=== PATIENT | female | born 1995 | race Caucasian/White ===

== ENCOUNTER 2021-06-05 17:24 | Emergency (ER) | payer OTHER ==
[~2021-06-05 17:24] MED LIST: CLEOCIN HCL300 MG PO; COLACE 100MG C100 MG PO; IBUPROFEN400 MG PO; NAPROSYN500 MG PO; VENTOLIN HFA 66.7 GM INH; Viscous lidocaine2% TOP; ZITHROMAX250 MG PO
[2021-06-05] MEDS ORDERED: Viscous Lidocaine2% TOP (18:48)
[2021-06-05] MEDS ORDERED: CLEOCIN HCL300 MG PO (18:48)
[2021-06-05] MEDS ORDERED: NAPROSYN500 MG PO (18:48)
== END 2021-06-05 18:52 | disposition home or self-care (01) ==
LOC: ER1 17:24
DX: K04.7 Periapical abscess without sinus (principal); F17.210 Nicotine dependence, cigarettes, uncomplicated
CPT/HCPCS: 99282